=== PATIENT | male | born 1960 | race Hispanic/Latino ===

== ENCOUNTER 2023-12-22 06:15 | Observation (INO) | payer OTHER ==
[2023-12-16 13:24] LABS: BASOPHILS # (AUTO) 0.04 K/uL (0.00-0.20); BASOPHILS % (AUTO) 0.5 % (0.0-5.0); EOSINOPHILS # (AUTO) 0.84 K/uL (0.00-0.70); EOSINOPHILS % (AUTO) 9.8 % (0.0-8.0); HEMATOCRIT 39.3 % (42-54); IMMATURE GRANULOCYTE ABSOLUTE 0.02 K/uL (0-1); LYMPHOCYTES # (AUTO) 1.4 K/uL (1.0-4.8); LYMPHOCYTES % (AUTO) 16.6 % (21.0-51.0); MEAN CORPUSCULAR HEMOGLOBIN 30.2 pg (27.0-33.0); MEAN CORPUSCULAR HGB CONC 33.1 g/dL (32.0-36.0); MEAN CORPUSCULAR VOLUME 91.2 fL (79-99); MONOCYTES # (AUTO) 0.7 K/uL (0.1-1.0); MONOCYTES % (AUTO) 8.2 % (3.0-13.0); NEUTROPHILS # (AUTO) 5.6 K/uL (1.8-7.7); NEUTROPHILS % (AUTO) 64.7 % (40.0-77.0); PLATELET COUNT (AUTO) 216 K/uL (130-400); RED BLOOD CELL COUNT(AUTO) 4.31 MIL/uL (4.50-6.20); RED CELL DISTRIBUTION WIDTH 13.8 % (11.0-15.5); WHITE BLOOD COUNT (AUTO) 8.6 K/uL (4.8-10.8)
[2023-12-16 13:29] LABS: APPEARANCE,URINE CLEAR (CLEAR); BILIRUBIN,URINE NEGATIVE (NEGATIVE); COLOR,URINE LIGHT-YELLOW (YELLOW); GLUCOSE, URINE (UA) NEGATIVE (NEGATIVE); KETONES,URINE NEGATIVE (NEGATIVE); LEUKOCYTE ESTERASE ,URINE NEGATIVE Leu/uL (NEGATIVE); NITRATE,URINE NEGATIVE (NEGATIVE); OCCULT BLOOD,URINE NEGATIVE (NEGATIVE); PROTEIN,URINE NEGATIVE (NEGATIVE); UROBILINOGEN,URINE 0.2 mg/dL (0.2-1.0)
[2023-12-16 13:30] LABS: ADD UA MICROSCOPIC NO
[2023-12-16 13:31] LABS: ALBUMIN 3.9 g/dL (3.5-5.0); POTASSIUM 4.3 mmol/L (3.5-5.1); PROTHROMBIN TIME 10.8 SEC (9.6-11.6)
[2023-12-16 13:32] LABS: PARTIAL THROMBOPLASTIN TIME 31.3 SEC (26.3-35.5)
[2023-12-16 13:40] VITALS: BP 164/87; PULSE 60; RESP 18; TEMP 98.2
[2023-12-22] VITALS (26 sets, daily range): BP systolic 108–149; BP diastolic 48–78; PULSE 50–84; RESP 13–18; TEMP 97.1–98.3; O2SAT 94–98
[~2023-12-22] VITALS: Ht 172.7 cm; Wt 130.0 kg
[~2023-12-22 06:15] MED LIST: AMLO-257 PO; ASPI-1443 PO; ATOR20TA65 PO; LABE200T7 PO; METF-446 PO; VALS320T16 PO
[2023-12-22] MEDS ORDERED: GLYCOPYRROLATE 0.2 MG/ML 5 ML VIAL ONE (07:03)
[2023-12-22] MEDS ORDERED: MIDAZOLAM HCL 1 MG/ML 2ML VIAL ONE (07:03)
[2023-12-22] MEDS ORDERED: rocuRONium bROMide 10MG/1ML 5ML VL ONE ×2 (07:03→09:38)
[2023-12-22] MEDS ORDERED: proPOFol 10 MG/ML 20ML VIAL IV ONE (07:03)
[2023-12-22] MEDS ORDERED: NEOSTIGMINE METHYLSULFATE 1MG/ML IV ONE (07:03)
[2023-12-22] MEDS ORDERED: FENTanyl CITRate PF 50 MCG/1 ML 2ML VIAL ONE ×2 (07:04→10:07)
[2023-12-22] MEDS ORDERED: LIDOCAINE PF 100MG/5ML (2%) SYRINGE 5ML ONE (07:04)
[2023-12-22] MEDS ORDERED: phenylEPHRINE HCL 10 MG/ML 1ML VIAL IV ONE (07:08)
[2023-12-22] MEDS ORDERED: ROPivacaine 0.5% 5MG/ML 30ML ONE ×2 (07:10→08:04)
[2023-12-22] MEDS: ceFAZolin SODIUM 2 GM VIAL ONE (07:43)
[2023-12-22] MEDS: 0.9%NACL 1000ML 1,000 ML IV ONE (07:44)
[2023-12-22] MEDS ORDERED: TRANEXAMIC ACID 1000MG/10ML ONE (08:02)
[2023-12-22] MEDS ORDERED: ketOROlac 30MG VIAL (30MG/ML) ONE (08:04)
[2023-12-22] MEDS: ceFAZolin SODIUM 2 GM VIAL IVPB ONE (09:20)
[2023-12-22] MEDS ORDERED: PoTASSium chloRIDE 20MEQ/100ML 100 ML IV PRN (10:00)
[2023-12-22] MEDS ORDERED: ondanSETRON 4MG INJ IVP PRN (10:00)
[2023-12-22] MEDS ORDERED: traMADol HCL 50 MG TABLET PO PRN (10:00)
[2023-12-22] MEDS ORDERED: PoTASSium chl 10% ELIXIR 20MEQ 20 MEQ/15 ML UDCUP PO PRN (10:00)
[2023-12-22] MEDS ORDERED: FERROUS FUMARATE 324 MG TABLET PO PRN (10:00)
[2023-12-22] MEDS ORDERED: CALCIUM CARB 500MG PO PRN (10:00)
[2023-12-22] MEDS ORDERED: PoTASSium chloRIDE 20MEQ ER 20 MEQ ERTAB PO PRN (10:00)
[2023-12-22] MEDS ORDERED: ondanSETRON 4MG INJ ONE (10:16)
[2023-12-22] MEDS: ketOROlac 30MG VIAL (30MG/ML) IJ ONE (10:50)
[2023-12-22] MEDS: ketOROlac 15MG/ML VIAL (15MG/ML) ONE (12:27)
[2023-12-22] MEDS: ketOROlac 15MG/ML VIAL (15MG/ML) IV SCH ×2 (12:27→20:38)
[2023-12-22] MEDS: acetaMINOPHEN 100 ML ONE (12:27)
[2023-12-22] MEDS: MEPERIDINE-PF 25 MG/ML SYG ONE ×2 (12:28→12:39)
[2023-12-22] MEDS: 0.9%NACL 1000ML 1,000 ML IV SCH (14:30)
[2023-12-22] MEDS: INSULIN humuLIN R 100 UNIT/ML 3ML SQ SCH (14:36)
[2023-12-22] MEDS: LAbetaLOL HCL 200 MG TABLET PO SCH ×2 (14:37→20:39)
[2023-12-22] MEDS: GABApentin 100 MG CAPSULE PO SCH (14:39)
[2023-12-22] MEDS: CYCLOBENZAPRINE HCL 10 MG TABLET PO PRN (15:38)
[2023-12-22] MEDS: HYDROcodone/APAP 5/325 1 TAB TABLET PO PRN (15:38)
[2023-12-22] MEDS: ceFAZolin SODIUM 2 GM VIAL IVP SCH (18:13)
[2023-12-22] MEDS: amLODIPine 5 MG TAB PO SCH (20:39)
[2023-12-22] MEDS: doCUSate SODIUM 100 MG CAP PO SCH (20:41)
[2023-12-23 03:33] LABS: HEMATOCRIT 33.8 % (42-54); MEAN CORPUSCULAR HEMOGLOBIN 30.2 pg (27.0-33.0); MEAN CORPUSCULAR HGB CONC 32.2 g/dL (32.0-36.0); MEAN CORPUSCULAR VOLUME 93.6 fL (79-99); RED BLOOD CELL COUNT(AUTO) 3.61 MIL/uL (4.50-6.20); RED CELL DISTRIBUTION WIDTH 14.1 % (11.0-15.5); WHITE BLOOD COUNT (AUTO) 10.4 K/uL (4.8-10.8)
[2023-12-23 03:45] LABS: POTASSIUM 3.7 mmol/L (3.5-5.1)
[2023-12-23 04:00] VITALS: BP 143/72; PULSE 57; RESP 19; TEMP 98
[2023-12-23 08:14] VITALS: O2SAT 98
[2023-12-23] MEDS: metFORmin HCL 500 MG TABLET PO SCH (08:14)
[2023-12-23] MEDS: ASPIRIN 325MG EC TAB PO SCH (08:14)
[2023-12-23] MEDS: atorVAStatin 10 MG TABLET PO SCH (08:14)
[2023-12-23] MEDS: VALSARTAN PO SCH (08:16)
[2023-12-23] MEDS: polyETHYLene GLYCol 3350 17 GM POWD.PACK PO SCH (08:17)
[2023-12-23 09:37] VITALS: BP 153/78; PULSE 60; RESP 18; TEMP 98.3
[2023-12-23 12:30] VITALS: BP 171/72; PULSE 61; RESP 17; TEMP 98.2
[2023-12-23 16:28] VITALS: BP 132/66; PULSE 58; RESP 18; TEMP 97.9
[2023-12-23] MEDS ORDERED: HYDR-4060 PO (17:05)
[2023-12-23] MEDS ORDERED: ASPI-891 PO (17:05)
[2023-12-23] MEDS ORDERED: GABA100C PO (17:05)
[2023-12-23] MEDS ORDERED: CYCL-309 PO (17:05)
[2023-12-23] MEDS ORDERED: DOCU-116 PO (18:33)
[2023-12-23 20:00] VITALS: O2SAT 98
[2023-12-23] MEDS: ketOROlac 15MG/ML VIAL (15MG/ML) IV PRN (21:16)
[2023-12-24 04:49] VITALS: BP 130/64; PULSE 57; RESP 18; TEMP 98.1
[2023-12-24 08:00] VITALS: BP 142/67; PULSE 64; RESP 16; TEMP 98.8
[2023-12-25] MEDS ORDERED: BisaCODYL 10 MG SUPP.RECT RC PRN (10:00)
[2023-12-25] MEDS ORDERED: atorVAStatin 10 MG TABLET PO SCH (21:00)
== END 2023-12-24 11:20 | disposition home or self-care (01) ==
LOC: DAH 06:15 → DAHIP 06:16 → 4DH 13:15
PROVIDERS: ADMIT Student in an Organized Health Care Education/Training Program; ATTEND Student in an Organized Health Care Education/Training Program
DX: M17.11 Unilateral primary osteoarthritis, right knee (principal); M25.561 Pain in right knee; D62 Acute posthemorrhagic anemia; E11.9 Type 2 diabetes mellitus without complications; J45.909 Unspecified asthma, uncomplicated; J44.9 Chronic obstructive pulmonary disease, unspecified; R00.1 Bradycardia, unspecified; E66.9 Obesity, unspecified; K76.0 Fatty (change of) liver, not elsewhere classified; Z79.899 Other long term (current) drug therapy; Z98.890 Other specified postprocedural states; Z68.41 Body mass index [BMI] 40.0-44.9, adult
CPT/HCPCS: 82040; 80048 ×2; 85025; 85610; 85730; 87086; 84134; 86140; 81003; 36415 ×2; 93005; 87641; 27447; 64447; 96374; 96376 ×2; 96375; 82948 ×8; 73560; 97161; 97116 ×4; 97530 ×5; 85027; G0378 ×44; A4663; J7030 ×2; A4215 ×2; J3010 ×2; J3490 ×6; J2003; J2250; J2704; J2405; J1885 ×6; J2710; J2175 ×2; J2795 ×3; J2371; J0690 ×3; C1713 ×2; G0168; C1776 ×2; A4649 ×2; A4930; A6255; A5120; A4223; A4222; A4221